=== PATIENT | female | born 1950 | race Caucasian/White ===

== ENCOUNTER → 2017-04-08 | Outpatient (CLI) | payer OTHER ==
[~2017-04-08] MED LIST: ACET-1138 PO; ASPEC81 PO; ATV1 PO; CARV6.25 PO; CLB/200 PO; CPR500 PO; FENT100D2 TD; OXYSR10 PO; PRLSR20 PO; ROPI0.5T15 PO; RXC5 PO; TORS100T13 PO; VENL150T33 PO
[2017-04-08 09:19] LABS: BASO % 0.2 %; BASO ABS # 0.01 K/uL (0-0.2); COMPLETE YES; EOS % 1.8 %; HEMATOCRIT 39.6 % (37-47); IG% 0.2 %; LYMPH % 28.9 %; LYMPH ABS # 1.73 K/uL (1.2-3.4); MEAN CELL VOLUME 96.1 fL (80-100); MEAN CORPUSCULAR HEMOGLOBIN 31.3 pg (25-34); MEAN CORPUSCULAR HGB CONC 32.6 g/dl (32-36); MEAN PLATELET VOLUME 10.9 fL (7.4-10.4); MONO % 11.2 %; NEUT % 57.7 %; PLATELET COUNT 196 K/uL (130-400); RED BLOOD COUNT 4.12 M/uL (4.2-5.4); WHITE BLOOD COUNT 5.99 K/uL (4.8-10.8)
[2017-04-08 09:23] LABS: CALCIUM 8.5 mg/dl (8.5-10.1)
[2017-04-08 09:28] LABS: BLOOD UREA NITROGEN 66 mg/dl (7-18); BUN/CREATININE RATIO 33.2 (10-20); CARBON DIOXIDE 27 mmol/L (21-32); CHLORIDE 101 mmol/L (98-107); GLUCOSE 103 mg/dl (70-99); POTASSIUM 2.9 mmol/L (3.5-5.1); SODIUM 139 mmol/L (136-145)
== END ==
LOC: C.LABCC 08:27
PROVIDERS: ATTEND Internal Medicine
DX: R60.9 Edema, unspecified (principal)

== ENCOUNTER → 2017-04-10 | Outpatient (CLI) | payer OTHER ==
[2017-04-10 09:59] LABS: BLOOD UREA NITROGEN 84 mg/dl (7-18); BUN/CREATININE RATIO 42.2 (10-20); CARBON DIOXIDE 27 mmol/L (21-32); CHLORIDE 100 mmol/L (98-107); GLUCOSE 102 mg/dl (70-99); POTASSIUM 3.1 mmol/L (3.5-5.1); SODIUM 139 mmol/L (136-145)
[2017-04-10 10:13] LABS: CALCIUM 8.8 mg/dl (8.5-10.1)
== END ==
LOC: C.LABCC 08:01
PROVIDERS: ATTEND Internal Medicine
DX: I10 Essential (primary) hypertension (principal)

== ENCOUNTER → 2017-04-15 | Outpatient (CLI) | payer OTHER ==
[2017-04-15 10:11] LABS: BLOOD UREA NITROGEN 99 mg/dl (7-18); BUN/CREATININE RATIO 57.9 (10-20); CARBON DIOXIDE 27 mmol/L (21-32); CHLORIDE 106 mmol/L (98-107); GLUCOSE 99 mg/dl (70-99); SODIUM 144 mmol/L (136-145)
[2017-04-15 10:19] LABS: CALCIUM 8.2 mg/dl (8.5-10.1)
== END ==
LOC: C.LABCC 09:36
PROVIDERS: ATTEND Internal Medicine
DX: E87.6 Hypokalemia (principal)

== ENCOUNTER → 2017-04-21 | Outpatient (CLI) | payer OTHER ==
[2017-04-21 08:17] LABS: BLOOD UREA NITROGEN 70 mg/dl (7-18); BUN/CREATININE RATIO 46.7 (10-20); CARBON DIOXIDE 27 mmol/L (21-32); CHLORIDE 111 mmol/L (98-107); GLUCOSE 92 mg/dl (70-99); POTASSIUM 3.4 mmol/L (3.5-5.1); SODIUM 148 mmol/L (136-145)
[2017-04-21 08:22] LABS: CALCIUM 8.3 mg/dl (8.5-10.1)
== END ==
LOC: C.LABCC 07:46
PROVIDERS: ATTEND Internal Medicine
DX: N28.9 Disorder of kidney and ureter, unspecified (principal); E87.6 Hypokalemia

== ENCOUNTER → 2017-04-28 | Outpatient (CLI) | payer OTHER ==
[2017-04-28 10:31] LABS: BLOOD UREA NITROGEN 49 mg/dl (7-18); BUN/CREATININE RATIO 37.5 (10-20); CALCIUM 8.1 mg/dl (8.5-10.1); CARBON DIOXIDE 28 mmol/L (21-32); CHLORIDE 113 mmol/L (98-107); GLUCOSE 106 mg/dl (70-99); POTASSIUM 4.3 mmol/L (3.5-5.1); SODIUM 146 mmol/L (136-145)
== END ==
LOC: C.LABCC 08:01
PROVIDERS: ATTEND Internal Medicine
DX: E87.6 Hypokalemia (principal)